=== PATIENT | female | born 2000 | race Caucasian/White ===

== ENCOUNTER 2019-01-06 09:42 | Emergency (ER) | payer MEDICAID ==
[~2019-01-06] VITALS: Ht 162.6 cm; Wt 74.8 kg
[2019-01-06 09:59] VITALS: BP 138/96
== END 2019-01-06 10:50 | disposition home or self-care (01) ==
LOC: ER 09:42
DX: N92.6 Irregular menstruation, unspecified (principal); Z32.02 Encounter for pregnancy test, result negative
CPT/HCPCS: 81002; 81025

== ENCOUNTER 2019-06-18 14:33 | Emergency (ER) | payer MEDICAID ==
[~2019-06-18] VITALS: Ht 165.1 cm; Wt 70.8 kg
[2019-06-18 18:44] VITALS: BP 107/63
== END 2019-06-18 18:47 | disposition home or self-care (01) ==
LOC: ER 14:33
DX: O26.892 Other specified pregnancy related conditions, second trimester (principal); K21.0 Gastro-esophageal reflux disease with esophagitis; O99.512 Diseases of the respiratory system complicating pregnancy, second trimester; J45.909 Unspecified asthma, uncomplicated; Z3A.23 23 weeks gestation of pregnancy

== ENCOUNTER 2023-10-16 21:13 | Emergency (ER) | payer MEDICAID ==
[~2023-10-16] VITALS: Ht 165.1 cm; Wt 80.3 kg
[2023-10-16 23:01] VITALS: BP 137/84; PULSE 94; RESP 16; TEMP 99.3; O2SAT 98
[2023-10-17] MEDS: DexAMETHasone SOD PHOS 10MG/1ML VIAL INJ IM ONE (00:50)
[2023-10-17] MEDS: HYDROcodone-ACET 5/325MG TAB PO ONE (00:50)
[2023-10-17] MEDS ORDERED: IBUP1TAB5 PO (00:51)
== END 2023-10-17 00:42 | disposition home or self-care (01) ==
LOC: ER 21:13
DX: S83.92XA Sprain of unspecified site of left knee, initial encounter (principal); S80.02XA Contusion of left knee, initial encounter; J45.909 Unspecified asthma, uncomplicated; K21.9 Gastro-esophageal reflux disease without esophagitis; X50.1XXA Overexertion from prolonged static or awkward postures, initial encounter; Y93.89 Activity, other specified; Y92.89 Other specified places as the place of occurrence of the external cause; Y99.8 Other external cause status
CPT/HCPCS: 29505; 73562; 99283; J1100